=== PATIENT | male | born 1965 | race Caucasian/White ===

== ENCOUNTER 2021-02-16 16:27 | Outpatient (CLI) | payer OTHER, SELFPAY ==
[2021-02-16 16:55] LABS: Basophils Absolute Auto 0.1 K/mm3 (0.0-0.1); Basophils Percent Auto 1.2 % (0.2-1.2); Eosinophils Absolute Auto 0.3 K/mm3 (0-0.3); Eosinophils Percent Auto 4.4 % (0-4.4); Hemoglobin 13.2 g/dL (14.0-18.0); Immature Granulocyte Absolute 0.01 K/mm3 (0.00-0.031); Immature Granulocyte Percent A 0.1 % (0-0.5); Lymphocytes Absolute Auto 1.95 K/mm3 (0.9-3.2); Lymphocytes Percent Auto 28.4 % (18.3-44.2); Mean Corpuscular Hemoglobin 29.3 pg (26-34); Mean Corpuscular Volume 88.7 fl (80-100); Monocytes Absolute Auto 0.9 K/mm3 (0.1-0.6); Monocytes Percent Auto 12.7 % (2.6-8.5); Neutrophils Absolute Auto 3.7 K/mm3 (1.3-6.7); Neutrophils Percent Auto 53.2 % (45.5-73.1); Platelet Count Result 237 k/mm3 (150-375); Red Blood Count 4.51 M/mm3 (4.6-6.20); Red Cell Distribution Width 12.7 % (11.5-14.5); White Blood Count 6.9 K/mm3 (4.5-10.0)
[2021-02-16 17:03] LABS: Add Urine Microscopic? NO; Appearance Urine Clear (Clear); Bilirubin Urine Negative (Negative); Blood Urine Negative (Negative); Color Urine Yellow (Yellow); Glucose Urine UA Negative (Negative); Ketones Urine Negative (Negative); Leukocyte Esterase Ur Negative LEU/UL (NEGATIVE); Nitrate Urine Negative (Negative); Protein Urine Negative (Negative); Specific Grav Ur 1.018 (1.001-1.035); Urobilinogen Urine Negative mg/dL (<2.0)
[2021-02-16 17:06] LABS: Alanine Aminotransferase 37 U/L (4-50); Albumin Level 4.6 g/dL (3.5-5.1); Alkaline Phosphatase 71 U/L (38-126); Anion Gap 5 mmol/L (8-16); Aspartate Amino Transferase 38 U/L (17-59); Bilirubin,Total 0.6 mg/dL (0.2-1.3); Blood Urea Nitrogen 16 mg/dL (9-20); Calcium 9.5 mg/dL (8.4-10.2); Carbon Dioxide 33 mmol/L (22-30); Chloride 101 mmol/L (98-107); Cholesterol 215 mg/dL (0-200); Estimated Glomerular Filt Rate 57; Glucose 98 mg/dL (75-110); HDL Direct 50 mg/dL; Potassium 3.9 mmol/L (3.4-5.0); Sodium 139 mmol/L (137-145); Triglycerides 217 mg/dL (<150); Uric Acid 8.6 mg/dL (3.5-8.5)
[2021-02-16 17:16] LABS: LDL Cholesterol Direct 93 mg/dL
[2021-02-16 17:37] LABS: Prostate Specific Antigen 0.6 ng/mL (< OR = 4.0)
[2021-02-16 18:12] LABS: Folic Acid > 20.0 ng/mL (2.76->20)
== END 2021-02-16 16:28 | disposition home or self-care (01) ==
LOC: ANHLAB 16:29
PROVIDERS: PCP Nurse Practitioner Family; Visit Provider Nurse Practitioner Family
DX: Z12.5 Encounter for screening for malignant neoplasm of prostate (principal); I10 Essential (primary) hypertension; Z00.00 Encounter for general adult medical examination without abnormal findings
CPT/HCPCS: 36415; 80053; 80061; 81003; 82607; 82746; 84153; 84443; 84550; 85025; G0103

== ENCOUNTER 2021-08-16 14:00 | Outpatient (CLI) | payer OTHER, SELFPAY ==
[2021-08-16 14:37] LABS: Basophils Absolute Auto 0.1 K/mm3 (0.0-0.1); Basophils Percent Auto 1.3 % (0.2-1.2); Eosinophils Absolute Auto 0.2 K/mm3 (0-0.3); Eosinophils Percent Auto 5.3 % (0-4.4); Hematocrit 40.1 % (42.0-52.0); Hemoglobin 13.7 g/dL (14.0-18.0); Immature Granulocyte Absolute 0.01 K/mm3 (0.00-0.031); Immature Granulocyte Percent A 0.2 % (0-0.5); Lymphocytes Absolute Auto 1.58 K/mm3 (0.9-3.2); Mean Corpuscular HGB Conc 34.2 g/dl (32-36); Mean Corpuscular Hemoglobin 30.3 pg (26-34); Mean Corpuscular Volume 88.7 fl (80-100); Mean Platelet Volume 10.9 fl (7.4-10.4); Monocytes Absolute Auto 0.6 K/mm3 (0.1-0.6); Monocytes Percent Auto 13.3 % (2.6-8.5); Neutrophils Percent Auto 44.9 % (45.5-73.1); Platelet Count Result 210 k/mm3 (150-375); Red Blood Count 4.52 M/mm3 (4.6-6.20); Red Cell Distribution Width 12.5 % (11.5-14.5); White Blood Count 4.5 K/mm3 (4.5-10.0)
[2021-08-16 14:48] LABS: Anion Gap 2 mmol/L (8-16); Blood Urea Nitrogen 16 mg/dL (9-20); Calcium 9.5 mg/dL (8.4-10.2); Carbon Dioxide 35 mmol/L (22-30); Chloride 97 mmol/L (98-107); Estimated Glomerular Filt Rate > 60; Glucose 114 mg/dL (65-110); Potassium 4.2 mmol/L (3.4-5.0); Sodium 134 mmol/L (137-145); Uric Acid 8.7 mg/dL (3.5-8.5)
[2021-08-16 14:51] LABS: Iron 96 ug/dL (49-181)
[2021-08-16 15:01] LABS: Percent Iron Saturation 27 % (20-50)
== END 2021-08-16 14:01 | disposition home or self-care (01) ==
PROVIDERS: PCP Nurse Practitioner Family; Visit Provider Nurse Practitioner Family
DX: D64.9 Anemia, unspecified (principal); I10 Essential (primary) hypertension; E79.0 Hyperuricemia without signs of inflammatory arthritis and tophaceous disease
CPT/HCPCS: 36415; 80048; 82728; 83540; 83550; 84550; 85025

== ENCOUNTER 2022-03-02 14:36 | Outpatient (CLI) | payer OTHER, SELFPAY ==
[2022-03-02 15:02] LABS: Basophils Absolute Auto 0.1 K/mm3 (0.0-0.1); Basophils Percent Auto 1.5 % (0.2-1.2); Eosinophils Absolute Auto 0.2 K/mm3 (0-0.3); Eosinophils Percent Auto 3.9 % (0-4.4); Hematocrit 41.5 % (42.0-52.0); Hemoglobin 13.7 g/dL (14.0-18.0); Immature Granulocyte Absolute 0.01 K/mm3 (0.00-0.031); Immature Granulocyte Percent A 0.2 % (0-0.5); Lymphocytes Percent Auto 25.5 % (18.3-44.2); Mean Corpuscular Hemoglobin 29.7 pg (26-34); Mean Platelet Volume 10.7 fl (7.4-10.4); Monocytes Absolute Auto 0.7 K/mm3 (0.1-0.6); Neutrophils Absolute Auto 3.4 K/mm3 (1.3-6.7); Neutrophils Percent Auto 57.9 % (45.5-73.1); Platelet Count Result 220 k/mm3 (150-375); Red Blood Count 4.61 M/mm3 (4.6-6.20); White Blood Count 5.9 K/mm3 (4.5-10.0)
[2022-03-02 15:05] LABS: Appearance Urine Clear (Clear); Bilirubin Urine Negative (Negative); Blood Urine Negative (Negative); Color Urine Yellow (Yellow); Glucose Urine UA Negative (Negative); Ketones Urine Negative (Negative); Leukocyte Esterase Ur Negative LEU/UL (NEGATIVE); Nitrate Urine Negative (Negative); Protein Urine Negative (Negative); Urobilinogen Urine 0.2 mg/dL (<2.0)
[2022-03-02 15:13] LABS: Add Urine Microscopic? NO
[2022-03-02 15:31] LABS: Alanine Aminotransferase 37 U/L (6-50); Albumin Level 4.4 g/dL (3.5-5.1); Alkaline Phosphatase 74 U/L (38-126); Anion Gap 7 mmol/L (8-16); Aspartate Amino Transferase 34 U/L (17-59); Bilirubin,Total 0.6 mg/dL (0.2-1.3); Blood Urea Nitrogen 13 mg/dL (9-20); Calcium 8.8 mg/dL (8.4-10.2); Carbon Dioxide 29 mmol/L (22-30); Chloride 99 mmol/L (98-107); Cholesterol 156 mg/dL (0-200); Estimated Glomerular Filt Rate > 60; Glucose 112 mg/dL (65-110); HDL Direct 53 mg/dL; Potassium 4.1 mmol/L (3.4-5.0); Sodium 135 mmol/L (137-145); Triglycerides 116 mg/dL (<150); Uric Acid 5.6 mg/dL (3.5-8.5)
[2022-03-02 15:42] LABS: LDL Cholesterol Direct 65 mg/dL
[2022-03-02 16:00] LABS: Thyroid Stimulating Hormone 0.729 uIU/mL (0.465-4.680)
[2022-03-02 16:08] LABS: Iron 68 ug/dL (49-181)
[2022-03-02 16:18] LABS: Percent Iron Saturation 18 % (20-50)
[2022-03-02 16:35] LABS: Folic Acid 13.6 ng/mL (2.76->20)
[2022-03-03 15:50] LABS: Prostate Specific Antigen 0.6 ng/mL (< OR = 4.0)
== END 2022-03-02 14:37 | disposition home or self-care (01) ==
LOC: ANHLAB 14:38
PROVIDERS: PCP Nurse Practitioner Family; Visit Provider Nurse Practitioner Family
DX: E78.5 Hyperlipidemia, unspecified (principal); D64.9 Anemia, unspecified; R73.01 Impaired fasting glucose; E79.0 Hyperuricemia without signs of inflammatory arthritis and tophaceous disease; E53.8 Deficiency of other specified B group vitamins; I10 Essential (primary) hypertension
CPT/HCPCS: 36415; 80053; 80061; 81003; 82607; 82728; 82746; 83036; 83540; 83550; 84153; 84443; 84550; 85025; G0103

== ENCOUNTER 2022-06-16 16:32 | Emergency (ER) | payer OTHER, SELFPAY ==
[2022-06-16] VITALS (8 sets, daily range): BP systolic 151–180; BP diastolic 89–100; PULSE 64–75; RESP 20; TEMP 36.4; O2SAT 98–100
--- NOTE | ~2022-06-16 | CT_ITS ---
EXAMINATION: CT abdomen pelvis wo con DATE: 06/16/2022 19:42 INDICATION: Right flank pain. TECHNIQUE: Computed tomography (CT) of the abdomen and pelvis was performed without intravenous contr ast. The dose-length product was 638.40 mGy-cm. Automated exposure control and iterative reconstructi on technique were employed. COMPARISON: None. FINDINGS: There is right lower lobe atelectasis. No significant pleural or pericardial effusion. Mild atherosclerosis without aneurysm. No lymphadenopathy. Heart size normal. The spleen, pancreas, adren al glands and kidneys are unremarkable. Gallbladder is contracted. Nonobstructive bowel gas pattern. Normal appendix. Colonic diverticulosis without evidence for diverticulitis. No free air or free flui d. Small fat-containing umbilical hernia. Mild lumbar spondylosis. No renal/ureteral stones or hydron ephrosis. Bladder is unremarkable. IMPRESSION: 1. No acute abdominal abnormality. Reviewed, dictated and finalized at location A.
[2022-06-16 17:11] LABS: Basophils Absolute Auto 0.1 K/mm3 (0.0-0.1); Basophils Percent Auto 1.2 % (0.2-1.2); Eosinophils Absolute Auto 0.3 K/mm3 (0-0.3); Hematocrit 42.4 % (42.0-52.0); Hemoglobin 14.2 g/dL (14.0-18.0); Immature Granulocyte Absolute 0.01 K/mm3 (0.00-0.031); Immature Granulocyte Percent A 0.2 % (0-0.5); Lymphocytes Absolute Auto 1.66 K/mm3 (0.9-3.2); Lymphocytes Percent Auto 25.7 % (18.3-44.2); Mean Corpuscular HGB Conc 33.5 g/dl (32-36); Mean Corpuscular Volume 89.5 fl (80-100); Mean Platelet Volume 10.8 fl (7.4-10.4); Monocytes Absolute Auto 0.7 K/mm3 (0.1-0.6); Monocytes Percent Auto 10.9 % (2.6-8.5); Neutrophils Absolute Auto 3.7 K/mm3 (1.3-6.7); Platelet Count Result 198 k/mm3 (150-375); Red Blood Count 4.74 M/mm3 (4.6-6.20); Red Cell Distribution Width 12.9 % (11.5-14.5); White Blood Count 6.5 K/mm3 (4.5-10.0)
[2022-06-16 17:14] LABS: Appearance Urine Clear (Clear); Bilirubin Urine Negative (Negative); Blood Urine Negative (Negative); Color Urine Yellow (Yellow); Glucose Urine UA Negative (Negative); Ketones Urine Negative (Negative); Leukocyte Esterase Ur Negative LEU/UL (Negative); Nitrate Urine Negative (Negative); Protein Urine Negative (Negative); Urobilinogen Urine 0.2 mg/dL (<2.0)
[2022-06-16 17:29] LABS: Add Urine Microscopic? NO
[2022-06-16 17:32] LABS: Alanine Aminotransferase 50 U/L (6-50); Albumin Level 4.8 g/dL (3.5-5.1); Alkaline Phosphatase 70 U/L (38-126); Anion Gap 12 mmol/L (8-16); Aspartate Amino Transferase 49 U/L (17-59); Bilirubin,Total 0.7 mg/dL (0.2-1.3); Blood Urea Nitrogen 16 mg/dL (9-20); Calcium 9.2 mg/dL (8.4-10.2); Carbon Dioxide 24 mmol/L (22-30); Chloride 99 mmol/L (98-107); Estimated CRCL calculation 65 ml/min; Estimated Glomerular Filt Rate > 60; Glucose 129 mg/dL (65-110); Lipase 104 U/L (23-300); Sodium 135 mmol/L (137-145)
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
== END 2022-06-16 21:22 | disposition home or self-care (01) ==
PROVIDERS: Emergency Provider Emergency Medicine; PCP Nurse Practitioner Family
DX: R10.9 Unspecified abdominal pain (principal); I10 Essential (primary) hypertension; E78.5 Hyperlipidemia, unspecified; Z20.822 Contact with and (suspected) exposure to COVID-19; E53.8 Deficiency of other specified B group vitamins; K21.9 Gastro-esophageal reflux disease without esophagitis; Z87.891 Personal history of nicotine dependence; Z79.82 Long term (current) use of aspirin
CPT/HCPCS: 36415; 74176; 80053; 81003; 83690; 85025; 99284

== ENCOUNTER 2022-10-04 14:41 | Outpatient (CLI) | payer OTHER, SELFPAY ==
[2022-10-04 15:08] LABS: Anion Gap 6 mmol/L (8-16); Blood Urea Nitrogen 15 mg/dL (9-20); Calcium 8.8 mg/dL (8.4-10.2); Carbon Dioxide 29 mmol/L (22-30); Chloride 98 mmol/L (98-107); Cholesterol 185 mg/dL (0-200); Estimated Glomerular Filt Rate 57; Glucose 114 mg/dL (65-110); HDL Direct 47 mg/dL; Potassium 4.1 mmol/L (3.4-5.0); Sodium 133 mmol/L (137-145); Triglycerides 266 mg/dL (<150); Uric Acid 5.5 mg/dL (3.5-8.5)
[2022-10-04 15:13] LABS: Hemoglobin A1C 6.2 % (<5.7)
[2022-10-04 15:18] LABS: LDL Cholesterol Direct 75 mg/dL
== END 2022-10-04 14:42 | disposition home or self-care (01) ==
PROVIDERS: PCP Nurse Practitioner Family; Visit Provider Nurse Practitioner Family
DX: R73.01 Impaired fasting glucose (principal); E78.5 Hyperlipidemia, unspecified; E79.0 Hyperuricemia without signs of inflammatory arthritis and tophaceous disease; I10 Essential (primary) hypertension
CPT/HCPCS: 36415; 80048; 80061; 83036; 84550

== ENCOUNTER 2023-04-11 13:47 | Outpatient (CLI) | payer OTHER, SELFPAY ==
[2023-04-11 14:14] LABS: Basophils Absolute Auto 0.1 K/mm3 (0.0-0.1); Basophils Percent Auto 1.2 % (0.2-1.2); Eosinophils Absolute Auto 0.3 K/mm3 (0-0.3); Hematocrit 40.1 % (42.0-52.0); Hemoglobin 13.2 g/dL (14.0-18.0); Immature Granulocyte Absolute 0.01 K/mm3 (0.00-0.031); Immature Granulocyte Percent A 0.2 % (0-0.5); Lymphocytes Absolute Auto 1.45 K/mm3 (0.9-3.2); Mean Corpuscular HGB Conc 32.9 g/dl (32-36); Mean Corpuscular Hemoglobin 30.3 pg (26-34); Monocytes Absolute Auto 0.6 K/mm3 (0.1-0.6); Monocytes Percent Auto 10.7 % (2.6-8.5); Neutrophils Absolute Auto 3.4 K/mm3 (1.3-6.7); Neutrophils Percent Auto 57.9 % (45.5-73.1); Platelet Count Result 215 k/mm3 (150-375); Red Blood Count 4.36 M/mm3 (4.6-6.20); Red Cell Distribution Width 12.8 % (11.5-14.5); White Blood Count 5.8 K/mm3 (4.5-10.0)
[2023-04-11 21:27] LABS: Alanine Aminotransferase 33 U/L (6-50); Albumin Level 4.4 g/dL (3.5-5.1); Alkaline Phosphatase 64 U/L (38-126); Anion Gap 6 mmol/L (8-16); Aspartate Amino Transferase 35 U/L (17-59); Bilirubin,Total 0.5 mg/dL (0.2-1.3); Blood Urea Nitrogen 12 mg/dL (9-20); Calcium 9.2 mg/dL (8.4-10.2); Carbon Dioxide 31 mmol/L (22-30); Chloride 101 mmol/L (98-107); Cholesterol 171 mg/dL (0-200); Estimated Glomerular Filt Rate > 60; Glucose 115 mg/dL (65-110); HDL Direct 41 mg/dL; Potassium 3.9 mmol/L (3.4-5.0); Sodium 138 mmol/L (137-145); Triglycerides 239 mg/dL (<150)
[2023-04-11 21:37] LABS: LDL Cholesterol Direct 71 mg/dL
[2023-04-11 21:55] LABS: Prostate Specific Antigen 0.8 ng/mL (< OR = 4.0); Thyroid Stimulating Hormone 0.847 uIU/mL (0.465-4.680)
[2023-04-11 22:33] LABS: Folic Acid 15.7 ng/mL (2.76->20)
[2023-04-12 01:19] LABS: Hemoglobin A1C 6.2 % (<5.7)
== END 2023-04-11 13:48 | disposition home or self-care (01) ==
LOC: ANHLAB 13:48
PROVIDERS: PCP Nurse Practitioner Family; Visit Provider Nurse Practitioner Family
DX: E87.1 Hypo-osmolality and hyponatremia (principal); E53.8 Deficiency of other specified B group vitamins; I10 Essential (primary) hypertension; R73.01 Impaired fasting glucose; E78.5 Hyperlipidemia, unspecified; Z12.5 Encounter for screening for malignant neoplasm of prostate
CPT/HCPCS: 36415; 80053; 80061; 82607; 82746; 83036; 84153; 84443; 85025; G0103

== ENCOUNTER 2024-12-19 10:50 | Outpatient (CLI) | payer OTHER, SELFPAY ==
[2024-12-19 11:21] LABS: Basophils Absolute Auto 0.1 K/mm3 (0.0-0.1); Basophils Percent Auto 1.1 % (0.2-1.2); Eosinophils Absolute Auto 0.1 K/mm3 (0-0.3); Eosinophils Percent Auto 2.5 % (0-4.4); Hematocrit 40.6 % (42.0-52.0); Hemoglobin 13.5 g/dL (14.0-18.0); Lymphocytes Absolute Auto 1.41 K/mm3 (0.9-3.2); Lymphocytes Percent Auto 26.9 % (18.3-44.2); Mean Corpuscular HGB Conc 33.3 g/dl (32-36); Mean Corpuscular Hemoglobin 29.7 pg (26-34); Mean Corpuscular Volume 89.2 fl (80-100); Mean Platelet Volume 10.8 fl (7.4-10.4); Monocytes Absolute Auto 0.7 K/mm3 (0.1-0.6); Monocytes Percent Auto 13.5 % (2.6-8.5); Neutrophils Absolute Auto 2.9 K/mm3 (1.3-6.7); Platelet Count Result 271 k/mm3 (150-375); Red Blood Count 4.55 M/mm3 (4.6-6.20); Red Cell Distribution Width 12.5 % (11.5-14.5); White Blood Count 5.3 K/mm3 (4.5-10.0)
[2024-12-19 11:34] LABS: Hemoglobin A1C 6.2 % (<5.7)
[2024-12-19 11:37] LABS: Add Urine Microscopic? YES; Appearance Urine Clear (Clear); Bacteria Urine None Seen /hpf; Bilirubin Urine Negative (Negative); Blood Urine Negative (Negative); Color Urine Yellow (Yellow); Glucose Urine UA Negative (Negative); Hyaline Casts Urine Present /lpf; Ketones Urine Trace mg/dL (Negative); Leukocyte Esterase Ur Negative LEU/UL (Negative); Need Manual Microscopic Reviewed; Nitrate Urine Negative (Negative); Protein Urine Trace mg/dL (Negative); RBC Urine 0-2 /hpf (0-2); Specific Grav Ur 1.016 (1.001-1.035); Squamous Epithelial Cell Urine None Seen /hpf (Few); WBC Urine 0-5 /hpf (0-3); pH Urine 7.5 (5.0-9.0)
[2024-12-19 11:39] LABS: Alanine Aminotransferase 38 U/L (6-50); Albumin Level 4.3 g/dL (3.5-5.1); Alkaline Phosphatase 71 U/L (38-126); Anion Gap 7 mmol/L (4-12); Aspartate Amino Transferase 28 U/L (17-59); Bilirubin,Total 0.7 mg/dL (0.2-1.3); Blood Urea Nitrogen 11 mg/dL (9-20); Calcium 9.2 mg/dL (8.4-10.2); Carbon Dioxide 32 mmol/L (22-30); Chloride 98 mmol/L (98-107); Cholesterol 160 mg/dL (0-200); Estimated Glomerular Filt Rate 55; Glucose 124 mg/dL (65-110); HDL Direct 43 mg/dL; Potassium 4.1 mmol/L (3.4-5.0); Sodium 137 mmol/L (137-145); Triglycerides 248 mg/dL (<150); Uric Acid 5.2 mg/dL (3.5-8.5)
[2024-12-19 11:51] LABS: LDL Cholesterol Direct 66 mg/dL
[2024-12-19 11:57] LABS: Iron 98 ug/dL (49-181)
--- OUTSIDE RECORDS SUMMARY | 2024-12-19 12:03 | XMS_ITS | Encounter Summary ---
Author Organization [facility] Address [address] [place] [address] Care Team Providers Care Clinical Resource Nurse Name Role Phone Unknown, Provider Primary Care Provider [facility] Yoly Worrell APRN-[facility] Primary Care Provider + Yoly Worrell APRN-[facility] Primary Care Provider + Yoly Worrell APRN-ACUTE CARE PHYSICIAN Unavailable [phone] Reason for Visit * Reason Onset Date Comments MEDICATION REFILL 04/19/2018 refill request Encounter Details Date Type Department Care Team (Late st Contact Info) Description 04/19/2018 Refill [facility] [address] [address] Unknown, Provider MEDICATION REFILL (refill request ) Social History Tobacco Use Types Packs/Day Years Used Date Smoking Tobacco: Some Days Cigarettes 0.2 25 Smokeless Tobacco: Never Alcohol Use Standard Drinks/Week Comments Yes 15 (1 standard drink = 0.6 oz pu re alcohol) Sex and Gender Information Value Date Recorded Sex Assigned at Not on file Gender Identity Not on file Sexual Orientation Not on file documented as of this encounter Miscellaneous Notes * Telephone Encounter - Yoly Souza APRN-CNP - 04/19/2018 12:35 PM CDT All medications prescribed in early February for 3 months and has 3 refills available since that time. Please have patient contact pharmacy, as he should have refills available. * Telephone Encounter - Emma Kemp - 04/19/2018 12:22 PM CDT Patient requesting refills for the following (Carvedilol 12.5 mg, Losartan 25 mg, Pravastatin 40 mg, and triamterene-HCTZ 37.5-25 mg) medications. HALEY:02-26-18 NOV:not scheduled at this time Problem List Identified: office visit on 02-26-18 essential HTN Medication attached per refill protocol/guidlines for further review by provider yes PCP / Resident PCP verified yes Allergies Reviewed yes Pharmacy Reviewed yes Medication details entered yes Office visit within the last six months yes if not within last 6 months route to GIM-scheduling as well. Office visit greater than 12 months no routed to GIM scheduling ONLY no. documented in this encounter Plan of Treatment Not on file documented as of this encounter Visit Diagnoses Diagnosis Essential hypertension documented in this encounter Care Teams Clinical Resource Nurse Relationship Specialty Start Date End Date Unknown, Provider PCP - General 02/23/18 11/05/18 Yoly Worrell APRN-CNP [facility] [place] [address] PCP - General 11/06/18 05/13/19 Yoly Worrell APRN-CNP [address] [place] [address] PCP - General Nurse Practitioner 05/14/19 Yoly Worrell APRN-CNP [address] [place] [address] 05/14/19 documented as of this encounter
--- OUTSIDE RECORDS SUMMARY | 2024-12-19 12:03 | XMS_ITS | Continuity of Care Document ---
Author Organization [facility] Address [address] [place] [address] [address] [place] [address] Phone Care Team Providers Care Pharmacy Intern Name Role Phone Alonzo OD, Steven Unavailable Unavailable Advance Directives Directive Yes / No Effective Date File Name No Information Encounters Encounter Description Practice Location Reason(s) For Visit Diagnoses Date Provider Providers Copied on Encounter [facility], [id number] [place] [address] [address], [place], [place], [id number], [place] tel:[phone] [facility] No Information Mathew-1 6[address] Alonzo OD Steven. [address] , [address], [place], [address], [place]. tel:[phone] Family History Family Member Type Diagnosis Age At Onset No Information Payers Payer name Insurance type Covered libertarian ID Authoriza tion(s) No Information Social History Type Description Quantity Date Captured Comments Sex Male Smoking Status No Information Chief Complaint And Reason For Visit No Information Reason For Referral Reason For Referral No Information History Of Present Illness Encounter Date Complaint History Of Prese nt Illness No Information Functional Status Date Functional Assessmen t No Information Instructions Date Instruction Additional Infor mation No Information Assessments Type Assessment Date No Information Patient Care Teams Name Effective Dates (start - stop) Status Members No Information
--- OUTSIDE RECORDS SUMMARY | 2024-12-19 12:03 | XMS_ITS | Encounter Summary ---
Author Organization [facility] Address [address] [place] [address] Care Team Providers Care Bobbin Coil Winder Name Role Phone Yoly Worrell ARTIST AND REPERTOIRE MANAGER-RAIL PROJECT ENGINEER Primary Care Provider + Yoly Worrell ARTIST AND REPERTOIRE MANAGER-RAIL PROJECT ENGINEER Unavailable [phone] Reason for Visit * Reason Onset Date Comments MEDICATION REFILL 05/31/2019 Encounter Details Date Type Department Care Team (Late st Contact Info) Description 05/31/2019 Refill [facility] [address] [facility] [address] [place] [address] Yoly Worrell, ARTIST AND REPERTOIRE MANAGER-RAIL PROJECT ENGINEER [address] [facility] [address] [facility] [place] [address] MEDICATION REFILL Social History Tobacco Use Types Packs/Day Years [...] encounter Miscellaneous Notes * Telephone Encounter - Ana Carrizales - 05/31/2019 10:49 AM CDT ..Patient calling in b/c upset Rx for medications below were not called in to pharmacy after HALEY 05/14/19. Pt reports this has happened before and is frustrated. Pt informed [place] he is out of medication and leaving town in 2 days. Pt requesting refills for the following: Requested Prescriptions Pending Prescriptions Disp Refills ??? carvedilol (COREG) 12.5 MG tablet 180 tablet 0 Sig: Take 1 tablet by mouth 2 times daily with morning and evening meal ??? triamterene-hydroCHLOROthiazide (DYAZIDE) 37.5-25 MG capsule 90 capsule 3 Sig: Take 1 capsule by mouth once daily HALEY:05/14/19 NOV:11/19/19 Problem List Identified: office visit on 05/14/19 Essential HTN Medication attached per refill protocol/guidlines for further review by provider yes PCP / Resident PCP verified yes Allergies Reviewed yes Pharmacy Reviewed yes Medication details entered yes - Please review prior to authorization. Transcribed per last RX Office visit within the last six months yes if not within last 6 months route to GIM-scheduling as well. Office visit greater than 12 months no routed to GIM scheduling ONLY no. documented in this encounter Plan of Treatment Not on file documented as of this encounter Visit Diagnoses Diagnosis Essential hypertension documented in this encounter Care Teams Bobbin Coil Winder Relationship Specialty Start Date End Date Yoly Worrell APRN-CNP [address] [place] [id number] PCP - General Nurse Practitioner 05/14/19 Yoly Worrell APRN-CNP [address] [place] [address] 05/14/19 documented as of this encounter
--- OUTSIDE RECORDS SUMMARY | 2024-12-19 12:03 | XMS_ITS | Clinical Summary ---
Author Organization [facility] Address [address] [facility] [place] [address] Care Team Providers Care Public Welfare Director Name Role Phone Yoly Worrell BUTTON INSPECTOR-BACK SHOE CUTTER Primary Care Provider + Yoly Worrell BUTTON INSPECTOR-BACK SHOE CUTTER Unavailable [phone] Source Comments [facility],non-owned Affiliates and Associated Physician Practices is amultiple site organization consisting of ambulatory clinics and hospital sitesin [place], [place], [place] and [place]. This disclosure is being madepursuant to the Care Everywhere program and may not contain all information available regarding this patient. Last updated 18.[facility] Allergies Active Allergy Reactions Criticality Noted Date Comments Amlodipine Base Swelling 11/25/2010 Medications * Be aware that medications may not be up to date on this document. Alwaysverify current medications with the patient. Medication Sig Dispensed Refills Start Date End Date Status Multiple Vitamins-Minerals (MULTIVITAMIN ADULT) CHEW Take by mouth. 03/01/2017 Active aspirin (ASPIRIN) 81 MG tabletIndications:H ealthcare maintenance Take 1 tablet by mouth once daily 11/06/2018 Active famotidine (PEPCID) 20 MG tabletIndications:G astroesophageal reflux disease, esophagitis presence not specified Take 1 tablet by mouth at bedtime 90 tablet 1 08/09/2019 Active carvedilol (COREG) 12.5 MG tabletIndications:E ssential (primary) hypertension Take 1 tablet by mouth 2 times daily with morning and evening meal 180 tablet 3 06/17/2020 Active atorvastatin (LIPITOR) 40 MG tablet Take 1 tablet by mouth once daily 90 tablet 3 06/17/2020 Active losartan (COZAAR) 50 MG tabletIndications:E ssential (primary) hypertension Take 1 tablet by mouth once daily 90 tablet 3 06/17/2020 Active triamterene-hydroCH LOROthiazide (DYAZIDE) 37.5-25 MG capsuleIndications: Essential (primary) hypertension Take 1 capsule by mouth once daily 90 capsule 3 06/17/2020 Active polyethylene glycol (GAVILYTE-C) 240 g solution Drink 1/2 of prep at 5pm the night before test. Finish the prep at 4am the day of test. 4000 mL 10/04/2020 Active bisacodyl EC (DULCOLAX) 5 MG tablet Take the 4 tablets at noon the day before colonoscopy 4 tablet 01/01/2021 Active polyethylene glycol 3350 (MIRALAX) 17 GM/SCOOP powder Mix entire bottle (238g) with 64 oz of clear liquid. Drink half of the mixture at 5 pm the night before colonoscopy. Finish the rest at 6 am the day of procedure 238 g 01/01/2021 Active Active Problems Problem Noted Date Diagnosed Date Alcohol use 05/14/2019 Neck pain 05/14/2019 Prediabetes 05/06/2019 Impotence due to erectile dysfunction 02/26/2018 Obstructive sleep apnea 03/01/2017 Overview (12/25/2017): Given CPAP, unable to tolerate, has not followed up with sleep medicine Hyperlipidemia 02/19/2016 Essential (primary) hypertension 02/19/2016 Nicotine dependence, uncomplicated 10/03/2013 Gastro-esophageal reflux disease without esophag itis 02/11/2010 Immunizations Name Administration Dates Next Due INFLUENZA VACCINE 07/20/2018,07/29/2014,10/03/19 14 INFLUENZA VACCINE, QUADR. (F LUZONE; FLULAVAL; FLUARIX; AFLURIA QUADRIVALENT; 6MO+), 0.5 ML (IIV4) 08/16/2019,07/24/2017 PNEUMOCOCCAL PPSV23 02/26/2018 TD (ADULT), 5 LF TETANUS TOX OID, ADSORBED, PF 06/17/2020 TDAP (7yrs+) 05/27/2010 iNFLUENZA VACCINE, RECOM-KIM, QUADR. (FLUBLOCK QUADRIVALENT; 18Y+) (RIV4) 07/20/2018 Family History Medical History Relation Name Comments CAD (Coronary Artery Disease) Brother 1 CAD (Coronary Artery Disease) Brother 2 Heart Failure Father Status: Deceas ed Heart Failure Mother Status: Deceas ed CAD (Coronary Artery Disease) Sister 1 CAD (Coronary Artery Disease) Sister 2 CAD (Coronary Artery Disease) Sister 3 CAD (Coronary Artery Disease) Sister 4 CAD (Coronary Artery Disease) Sister 5 Relation Name Status Comments Brother 1 Brother 2 Father Mother Sister 1 Sister 2 Sister 3 Sister 4 Sister 5 Social History Tobacco Use Types Packs/Day Years Used Date Smoking Tobacco: Some Days Cigarettes 0.2 25 Smokeless Tobacco: Never Alcohol Use Standard Drinks/Week Comments Yes 15 (1 standard drink = 0.6 oz pu re alcohol) Sex and Gender Information Value Date Recorded Sex Assigned at Not on file Gender Identity Not on file Sexual Orientation Not on file Last Filed Vital Signs Vital Sign Reading Time Taken Comments Blood Pressure 140/80 06/17/2020 8:36 AM CDT Pulse 72 06/17/2020 8:36 AM CDT Temperature 36.4 C (97.5 F) 06/17/2020 8:36 AM CDT Respiratory Rate 10 02/18/2016 3:09 PM CDT Oxygen Saturation 98% 02/18/2016 3:09 PM CDT Inhaled Oxygen Concentration - - Weight 93.4 kg (205 lb 12.8 oz) 06/17/2020 8:36 AM CDT Height 177.8 cm (5' 10 ) 02/26/2018 2:12 PM CDT Body Mass Index 29.53 02/26/2018 2:12 PM CDT Plan of Treatment Health Maintenance Due Date Last Done Comments COLOGUARD (AGES 45-75) - COLON CA SCREENING 1964 COLON MONITORING 1964 COLONOSCOPY - COLON CA SCREENING 1964 CT COLONOGRAPHY - COLON CA SCREENING 1964 Colorectal Cancer Screening 1964 FIT - COLON CA SCREENING 1964 FLEX SIG - COLON CA SCREENING 1964 ZOSTER VACCINE (1 of 2) 2014 PNEUMOCOCCAL VACCINE 50+ (2 of 2 - PCV) 02/26/2019 02/26/2018 PNEUMOCOCCAL VACCINE (2 of 2 - PCV) 02/26/2019 02/26/2018 COVID-19 VACCINE (1 - 2023- season) 2024 INFLUENZA VACCINE (#1) 2024 9, 07/20/2018, 07/20/2018, Additional history exists DEPRESSION SCREENING 09/25/2024 DTAP/TDAP/TD VACCINES (3 - Td or Tdap) 06/17/2030 06/17/2020, 05/27/2010 Respiratory Syncytial Virus (RSV) Vaccine Pt: or over 60 yrs (1 - 1-dose 75+ series) 2039 HEPATITIS C SCREENING Completed 03/01/2017 HIV SCREENING Completed 02/26/2018 HEPATITIS B VACCINE Aged Out No longe r eligible based on patient's age to complete this topic HIB VACCINE Aged Out No longer eligi ble based on patient's age to complete this topic HPV VACCINE Aged Out No longer eligi ble based on patient's age to complete this topic MENINGOCOCCAL (Group B) VACCINE SHARED DECISION-MAKING Aged Out No longer eligible based on patient's age to complete this topic MENINGOCOCCAL GROUPS A/C/Y/W VACCINE Aged Out No longer eligible based on patient's age to complete this topic Procedures Procedure Name Priority Date/Time Associated Diagnosis Comments HIV-1 HIV-2 ANTIGEN/ANTIBODY Routine 02/26/2018 3:09 PM CDT Healthcare maintenance HEPATITIS C ANTIBODY Routine 03/01/2017 3:24 PM CDT from Last 3 Months or Most Recently Relevant to Health Maintenance Results * HIV-1 HIV-2 ANTIGEN/ANTIBODY (02/26/2018 3:09 PM CDT) HIV Antigen/Antibod y 1 & 2 Non-reacti ve Non-react gema 02/26/2018 4:41 PM CDT [facility] Comment: Neither HIV-1 p24 Antigen nor HIV-1/HIV-2 Antibodies are detected. Blood BLOOD SPECIMEN / Unknown Lab Venipuncture / Unknown 02/26/2018 3:09 PM CDT 02/26/2018 3:45 PM CDT Yoly Worrell BUTTON INSPECTOR-BACK SHOE CUTTER LAB - HEMATOLOGY ORDERABLES Performing Organization Address City/State/[facility] Co de Phone Number [address] [phone] * HEPATITIS C ANTIBODY (03/01/2017 3:24 PM CDT) Hepatitis C Antibody Non-react gema Non-reac tive [facility] Comment: Hepatitis C Antibody screen indicates no serologic evidence of past or current infection with Hepatitis C Virus. Patients with unexplained liver disease who are immunocompromised or suspected of having acute Hepatitis C infection may benefit from Nucleic Acid Test (IVAN) for Hepatitis C Viral RNA to confirm Hepatitis C status. Blood specimen (specimen) BLOOD SPECIMEN / Unknown 03/01/2017 3:24 PM CDT 03/01/2017 3:48 PM CDT Teresa Solomon DO LAB - CHEMISTRY [facility] [address] [phone] from Last 3 Months or Most Recently Relevant to Health Maintenance Care Teams Public Welfare Director Relationship Specialty Start Date End Date Yoly Worrell, BUTTON INSPECTOR-BACK SHOE CUTTER [address] [place] [address] PCP - General Nurse Practitioner 05/14/19 Yoly Worrell, MARIKA-BACK SHOE CUTTER [address] [place] [address] 05/14/19
--- OUTSIDE RECORDS SUMMARY | 2024-12-19 12:03 | XMS_ITS | Encounter Summary ---
Author Organization [facility] Address [address] [facility] [place] [address] Care Team Providers Care Supervisor Cloth Winding Name Role Phone Unknown, Provider Primary Care Provider Racquel Yoly Chowdhury EXTRUSION PRESS ADJUSTER-SEXUAL ABUSE COUNSELLOR Primary Care Provider + Yoly Worrell EXTRUSION PRESS ADJUSTER-SEXUAL ABUSE COUNSELLOR Primary Care Provider + Yoly Worrell EXTRUSION PRESS ADJUSTER-SEXUAL ABUSE COUNSELLOR Unavailable [phone] Reason for Visit * Reason Onset Date Comments MEDICATION REFILL 04/19/2018 refill request Encounter Details Date Type Department Care Team (Late st Contact Info) Description 04/19/2018 Refill [facility] [address] [address] Unknown, Provider MEDICATION REFILL (refill [...] encounter Miscellaneous Notes * Telephone Encounter - Emma Kemp - 04/19/2018 1:00 PM CDT Patient requesting refills for the following (Losartan 25 mg, Pravastatin 40 mg, and triamterene-HCTZ 37.5-25 mg) medications. ?? HALEY:6-4-18 NOV:not scheduled at this time Problem List Identified: office visit on 02-26-18 essential HTN ?? Medication attached per refill protocol/guidlines for further review by provider yes PCP / Resident PCP verified yes Allergies Reviewed?? yes Pharmacy Reviewed yes Medication details entered yes Office visit within the last six months?? yes if not within last 6 months route to GIM-scheduling as well. Office visit greater than 12 months no routed to GIM scheduling ONLY documented in this encounter Plan of Treatment Not on file documented as of this encounter Visit Diagnoses Not on filedocumented in this encounter Care Teams Supervisor Cloth Winding Relationship Specialty Start Date End Date Unknown, Provider PCP - General 02/23/18 11/05/18 Yoly Worrell, EXTRUSION PRESS ADJUSTER-SEXUAL ABUSE COUNSELLOR [address] [place] [address] PCP - General 11/06/18 05/13/19 Yoly Worrell, EXTRUSION PRESS ADJUSTER-SEXUAL ABUSE COUNSELLOR [facility] [place] [address] PCP - General Nurse Practitioner 05/14/19 Yoly Worrell, EXTRUSION PRESS ADJUSTER-SEXUAL ABUSE COUNSELLOR [facility] [place] [address] 05/14/19 documented as of this encounter
--- OUTSIDE RECORDS SUMMARY | 2024-12-19 12:03 | XMS_ITS | Encounter Summary ---
Author Organization [facility] Address [address] [facility] [place] [address] Care Team Providers Care Construction Scheduler Name Role Phone Unknown, Provider Primary Care Provider UnavailYoly Potter TUB PULLER-DRILLING MACHINE RUNNER Primary Care Provider + Yoly Worrell TUB PULLER-DRILLING MACHINE RUNNER Primary Care Provider + Yoly Worrell TUB PULLER-DRILLING MACHINE RUNNER Unavailable [phone] Reason for Visit * Reason Onset Date Comments MEDICATION REFILL 10/12/2018 Encounter Details Date Type Department Care Team (Late st Contact Info) Description 10/12/2018 Refill [facility] General Internal Medicine [address] [address] Unknown, Provider MEDICATION REFILL Social History Tobacco Use Types [...] encounter Miscellaneous Notes * Telephone Encounter - Yarely Yusuf - 10/12/2018 11:49 AM CST Patient requesting refills for the following losartan 25 mg medications. HALEY: 02/26/18 NOV: none scheduled at this time Problem List Identified: office visit on Medication attached per refill protocol/guidlines for further review by provider yes PCP / Resident PCP verified yes Allergies Reviewed yes Pharmacy Reviewed yes Medication details entered yes Office visit within the last six months no if not within last 6 months route to GIM-scheduling as well. Office visit greater than 12 months no routed to GIM scheduling ONLY no. ISSIONED POLICE OFFICER documented in this encounter Plan of Treatment Not on file documented as of this encounter Visit Diagnoses Not on filedocumented in this encounter Care Teams Construction Scheduler Relationship Specialty Start Date End Date Unknown, Provider PCP - General 02/23/18 11/05/18 Yoly Worrell, TUB PULLER-DRILLING MACHINE RUNNER [facility] [place] [address] PCP - General 11/06/18 05/13/19 Yoly Worrell, TUB PULLER-DRILLING MACHINE RUNNER [facility] [place] [address] PCP - General Nurse Practitioner 05/14/19 Yoly Worrell, TUB PULLER-DRILLING MACHINE RUNNER [facility] [place] [address] 05/14/19 documented as of this encounter
--- OUTSIDE RECORDS SUMMARY | 2024-12-19 12:03 | XMS_ITS | Encounter Summary ---
Author Organization [facility] Address [address] [facility] [place] [address] Care Team Providers Care Scanning Clerk Name Role Phone Yoly Worrell BALLROOM DANCE INSTRUCTOR-SCHOOL PSYCHOLOGY SPECIALIST Primary Care Provider + Yoly Worrell BALLROOM DANCE INSTRUCTOR-SCHOOL PSYCHOLOGY SPECIALIST Unavailable [phone] Reason for Visit * Reason Onset Date Comments Medication Issue 08/09/2019 ranitidine Follow-up 08/16/2019 notfiied of scri pt Encounter Details Date Type Department Care Team (Late st Contact Info) Description 08/09/2019 Telephone [facility] General Internal Medicine [address] [facility] [address] [place] [address] Yoly Worrell, BALLROOM DANCE INSTRUCTOR-SCHOOL PSYCHOLOGY SPECIALIST [address] [facility] [place] [address] Medication Issue (ranitidine); Follow-up (notfiied of script) Social History Tobacco Use Types Packs/Day Years [...] * Telephone Encounter - Emma Kemp - 08/16/2019 1:17 PM CST Notified patient of message and patient verified that he received the medication and is taking as prescribed. 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 Stop ranitidine. Medication sent to pharmacy. ?? Please notify. ?? Yoly Haines APRN-CNP PULLER * Telephone Encounter - Yoly Souza APRN-CNP - 08/09/2019 11:38 AM FELT PULLER OK to switch to daily famotidine. Stop ranitidine. Medication sent to pharmacy. Please notify. Yoly Haines APRN-CNP PULLER * Telephone Encounter - Gato James - 08/09/2019 11:22 AM CST Pt called to inquire if he can switch from Ranitidine 150 mg to Famotidine 20 mg. Pt stated that the Ranitidine has been pulled off the shelves and he is not sure what to take now. Requesting to knowwhat the provider recommends he take, and provided call back number [phone] Message routed to provider for review and assistance PULLER documented in this encounter Plan of Treatment Not on file documented as of this encounter Visit Diagnoses Diagnosis Gastroesophageal reflux disease, esophagitis presence not specified- Primary documented in this encounter Care Teams Scanning Clerk Relationship Specialty Start Date End Date Yoly Worrell APRN-CNP [address] [place] [address] PCP - General Nurse Practitioner 05/14/19 Yoly Worrell APRN-CNP [address] [place] [address] 05/14/19 documented as of this encounter
[2024-12-19 12:08] LABS: Percent Iron Saturation 28 % (20-50)
[2024-12-19 12:09] LABS: Prostate Specific Antigen 0.7 ng/mL (< OR = 4.0)
== END 2024-12-19 10:51 | disposition home or self-care (01) ==
LOC: ANHLAB 10:53
PROVIDERS: PCP Nurse Practitioner Family; Visit Provider Nurse Practitioner Family
DX: E78.5 Hyperlipidemia, unspecified (principal); D64.9 Anemia, unspecified; I10 Essential (primary) hypertension; R73.01 Impaired fasting glucose; E53.8 Deficiency of other specified B group vitamins; M10.9 Gout, unspecified; Z12.5 Encounter for screening for malignant neoplasm of prostate
CPT/HCPCS: 36415; 80053; 80061; 81001; 82607; 82728; 83036; 83540; 83550; 84153; 84443; 84550; 85025; G0103

== ENCOUNTER 2025-07-03 12:57 | Outpatient (CLI) | payer OTHER, SELFPAY ==
--- NOTE | 2025-07-03 13:11 | ECG_ITS ---
Test Date: 2025-07-03 13:22:30 Measurements Intervals Nucla Rate: 53 P: 29 OH: 189 QRS: 44 QRSD: 91 T: 69 QT: 407 QTc: 383 Interpretive Statements SINUS BRADYCARDIA BASELINE ARTIFACT- V5 BORDERLINE ECG No previous ECG available for comparison Electronically Signed On 07-03-2025 14:08:05 CDT by Jan [place] D.O.
[2025-07-03 13:32] LABS: Hematocrit 41.5 % (42.0-52.0); Hemoglobin 13.6 g/dL (14.0-18.0); Immature Granulocyte Percent A 0.0 % (0-0.5); Lymphocytes Absolute Auto 1.56 K/mm3 (0.9-3.2); Mean Corpuscular HGB Conc 32.8 g/dl (32-36); Mean Corpuscular Hemoglobin 30.2 pg (26-34); Mean Corpuscular Volume 92.2 fl (80-100); Nucleated Red Blood Cells Absolute Auto 0.000 K/mm3 (0.0-0.012); Nucleated Red Blood Cells Perc 0.0 % (0.0-0.2); Platelet Count Result 173 k/mm3 (150-375); Red Blood Count 4.50 M/mm3 (4.6-6.20); White Blood Count 5.8 K/mm3 (4.5-10.0)
[2025-07-03 13:36] LABS: Alanine Aminotransferase 26 U/L (6-50); Albumin Level 4.4 g/dL (3.5-5.1); Alkaline Phosphatase 59 U/L (38-126); Anion Gap 6 mmol/L (4-12); Aspartate Amino Transferase 34 U/L (17-59); Bilirubin,Total 0.7 mg/dL (0.2-1.3); Blood Urea Nitrogen 9 mg/dL (9-20); Calcium 9.1 mg/dL (8.4-10.2); Carbon Dioxide 30 mmol/L (22-30); Chloride 102 mmol/L (98-107); Cholesterol 177 mg/dL (0-200); Estimated Glomerular Filt Rate > 60; Glucose 110 mg/dL (65-110); HDL Direct 59 mg/dL; Potassium 4.6 mmol/L (3.4-5.0); Sodium 138 mmol/L (137-145); Total Protein 7.6 g/dL (6.3-8.2); Triglycerides 146 mg/dL (<150)
[2025-07-03 13:48] LABS: Iron 88 ug/dL (49-181)
[2025-07-03 13:58] LABS: Percent Iron Saturation 24 % (20-50)
[2025-07-03 14:13] LABS: Hemoglobin A1C 5.8 % (<5.7)
[2025-07-03 14:29] LABS: Ferritin 37.60 ng/mL (11.1-264)
[2025-07-03 14:30] LABS: Vitamin B12 986.0 pg/mL (239-931)
== END 2025-07-03 12:58 | disposition home or self-care (01) ==
LOC: ANHLAB 12:59
PROVIDERS: PCP Nurse Practitioner Family; Visit Provider Nurse Practitioner Family
DX: R94.31 Abnormal electrocardiogram [ECG] [EKG] (principal); I49.9 Cardiac arrhythmia, unspecified; E53.8 Deficiency of other specified B group vitamins; R73.01 Impaired fasting glucose; D64.9 Anemia, unspecified; E78.5 Hyperlipidemia, unspecified; I10 Essential (primary) hypertension
CPT/HCPCS: 36415; 80053; 80061; 82607; 82728; 83036; 83540; 83550; 85025; 93005